=== PATIENT | female | born 1975 | race Two or more races ===

== ENCOUNTER 2016-08-02 14:53 | Emergency (ER) | payer MEDICAID ==
[~2016-08-02] VITALS: Wt 62.0 kg
--- NOTE | 2016-08-02 16:24 | RADRPT ---
PROCEDURE: CT Brain without contrast. CLINICAL INDICATION: Right facial numbness and drooping. TECHNIQUE: CT scan of the brain was performed on a multidetector high-resolution CT scan. Axial im aging was obtained of the brain without contrast administration. Coronal and sagittal reformatted i mages were obtained from the axial source images. Standard CT scan of the head without contrast prot ocols were performed. The total exam CTDI equals 45.01 mGy and the total exam DLP equals 630.2 mGy-cm. One or more of the following dose reduction techniques were used: - Automated exposure control. - Adjustment of the mA and/or kV according to patient size. Use of iterative reconstruction technique. COMPARISON: None FINDINGS: The ventricular system and peripheral CSF spaces are unremarkable. There are punctate calcification s involving the right frontal lobe consistent with previous inflammatory disease such as cysticercos is. Negative for intracranial masses hemorrhages or midline shift. The bones of the calvarium are i ntact. Paranasal sinuses and mastoids are unremarkable. IMPRESSION: 1. 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 2. Negative for intracranial masses hemorrhages or midline shift. RPTAT:AAJJ Physician Ross Date Time Electronically viewed and signed by Physician Ross on 08/02/2016 16:24 BM/
[2016-08-02] MEDS ORDERED: PRED20TA PO (16:35)
[2016-08-02] MEDS ORDERED: [UNRECOGNIZED DRUG - CODE] MC (16:36)
[2016-08-02] MEDS ORDERED: MINE3.5O30 RIGHT EYE (16:36)
[2016-08-02] MEDS ORDERED: predniSONE 20 MG TAB PO ONE (17:00)
--- NOTE | 2016-08-02 17:04 | ERD ---
ER Documentation Chief Complaint Date/Time DATE: 08/02/16 TIME: 16:56 Chief Complaint BARRERA, R. SIDED FACIAL, R. EYE TEARING SINCE SATURDAY HPI Patient is a 41-year-old female who presents to the ED with right sided facial pain, right eye pain, headache, tearing since 5 days ago. She states that she has a history of headaches, this is similar to headaches she has had in the past. Denies difficulty speaking, walking or weakness. Denies dizziness. Denies blurry vision . Denies hearing problems. Denies fever or chills. Denies cough, chest pain, shortness of breath, difficulty breathing. ROS All systems reviewed and are negative except as per history of present illness. Medications Home Meds Active Scripts Eye Patch (Eye Patch) 1 Each Each, 1 EACH , #1 Prov:ABIMBOLA HERRERA PA-C 08/02/16 Mineral Oil/Petrolatum,White (ARTIFICIAL TEARS EYE OINT) 3.5 Gm Oint...g., 1 APPLIC RIGHT EYE NEEDED Y for DRY EYES, #1 EA Prov:ABIMBOLA HERRERA PA-C 08/02/16 Prednisone* (Prednisone*) 20 Mg Tab, 60 MG PO DAILY for 4 Days, TAB Prov:ABIMBOLA HERRERA PA-C 08/02/16 Allergies Allergies: Coded Allergies: No Known Drug Allergy (Verified Allergy, Unknown, 01/11/07) PMhx/Soc History of Surgery: Yes (APPENDECTOMY) Anesthesia Reaction: No Hx Neurological Disorder: No Hx Respiratory Disorders: No Hx Cardiac Disorders: No Hx Psychiatric Problems: No Hx Miscellaneous Medical Probl: No Hx Alcohol Use: No Hx Substance Use: No Hx Tobacco Use: No Smoking Status: Never smoker FmHx Family History: No coronary disease, No diabetes, No other Physical Exam Vitals Vital Signs Date Time Temp Pulse Resp B/P Pulse Ox O2 Delivery O2 Flow Rate FiO2 08/02/16 14:55 97.7 78 20 120/81 98 Physical Exam GENERAL: Well-developed, well-nourished female. Appears in no acute distress. HEAD: Normocephalic, atraumatic. able to raise eyebrows on both sides, L>R, forehead wrinkle diminished on R>L. EYES: Pupils are equally reactive bilaterally. EOMs grossly intact. No conjunctival erythema. right eye not fully close ENT: Moist mucous membranes. No uvula deviation. No kissing tonsils. No exudates. HEART: Regular rate and rhythm. No murmurs, rubs or gallops. Extremities: Equal pulses bilaterally. No peripheral clubbing, cyanosis or edema. No unilateral leg swelling. NEUROLOGIC: Alert and oriented. Moving all four extremities. 5/5 strength in all extremities. Normal speech. Steady gait..taste decreased R>L. sensation decreased on right side of face > L. SKIN: Normal color. Warm and dry. No rashes or lesions. Capillary refill < 2 seconds Results 24 hrs Current Medications Medications (Trade) Dose Ordered Sig/Paulette Route PRN Reason Start Time Stop Time Status Last Admin Dose Admin Prednisone (Prednisone) 60 mg ONCE ONCE PO 08/02/16 17:00 08/02/16 17:00 DC 08/02/16 16:49 Procedures/MDM ER COURSE: I kept the patient and/or family informed of laboratory and diagnostic imaging results throughout the emergency room course. IMAGING: [place] [address] Radiology Main Line: [phone] DIAGNOSTIC IMAGING REPORT Patient: SONAM DOMINGUEZ : 1975 Age: 41 Sex: F [id number] DOS: 08/02/16 1539 Ordering MD: ABIMBOLA HERRERA PA-C Location: E/R Room/Bed: PROCEDURE: CT Brain without contrast. CLINICAL INDICATION: Right facial numbness and drooping. TECHNIQUE: CT scan of the brain was performed on a multidetector high- resolution CT scan. Axial imaging was obtained of the brain without contrast administration. Coronal and sagittal reformatted images were obtained from the axial source images. Standard CT scan of the head without contrast protocols were performed. The total exam CTDI equals 45.01 mGy and the total exam DLP equals 630.2 mGy- cm. One or more of the following dose reduction techniques were used: - Automated exposure control. - Adjustment of the mA and/or kV according to patient size. Use of iterative reconstruction technique. COMPARISON: None FINDINGS: The ventricular system and peripheral CSF spaces are unremarkable. There are punctate calcifications involving the right frontal lobe consistent with previous inflammatory disease such as cysticercosis. Negative for intracranial masses hemorrhages or midline shift. The bones of the calvarium are intact. Paranasal sinuses and mastoids are unremarkable. IMPRESSION: 1. 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 2. Negative for intracranial masses hemorrhages or midline shift. RPTAT:AAJJ Physician Ross Date Time Electronically viewed and signed by Mikaela Holman Physician on 08/02/2016 16:24 BM/ CC: ABIMBOLA HERRERA PA-C MEDICAL DECISION MAKING: This is a 41-year-old female who presents with right eye tearing, pain, headache and right-sided facial pain. Vital signs were reviewed. Patient is afebrile. Patient is not hypoxic. Patient is not toxic or ill-appearing. I have consulted with Dr. Gama who has examined patient at bedside. Patient has what is likely Johnson's palsy. A CT scan was ordered to rule out any neurologic emergencies. Low suspicion for intracranial hemorrhage, meningitis, intracranial mass, concussion, temporal arteritis, stroke, elevated intracranial pressure, seizure. Patient has decreased taste on right side, decreased eye closure, decreased forehead wrinkle. Patient does not show signs of FAST. DISCHARGE: At this time, patient is stable for discharge and outpatient management with no new complaints during the ER course. Patient was sent home with eye patch, artificial tears and prednisone. Patient will be discharged home with instructions to recheck for new or worsening symptoms such as fever, nausea, weakness, LOC and to follow up with primary care in the next 1-2 days. Patient was advised to return to the ER for any new or worsening symptoms. Plan was discussed and patient and/or family understands and agrees. Home instructions were given. Departure Diagnosis: Primary Impression: Johnson's palsy Condition: Stable Patient Instructions: Johnson's Palsy Additional Instructions: Llame al doctor KIRAANA y cecelia yo NORMAN PARA DENTRO DE 1-2 HENSON.Dgale a la secretaria que nosotros le instruimos hacer esta norman.Avise o llame si hess condicin se empeora antes de la norman. Regresa aqui si peor o no mejor. ABIMBOLA HERRERA PA-C Aug 02, 2016 17:04
== END 2016-08-02 16:57 | disposition home or self-care (01) ==
LOC: E/R 14:53
DX: G51.0 Bell's palsy (principal)
CPT/HCPCS: 70450; J7512; Z7502

== ENCOUNTER 2018-11-07 08:59 | Emergency (ER) | payer MEDICAID ==
[~2018-11-07] VITALS: Ht 152.4 cm; Wt 60.0 kg
[~2018-11-07 08:59] MED LIST: MINE3.5O30 RIGHT EYE; PRED20TA PO; [UNRECOGNIZED DRUG - CODE] MC
[2018-11-07 09:01] VITALS: BP 119/55; PULSE 55; RESP 18; Ht 152.4 cm; Wt 60.0 kg
[2018-11-07] MEDS ORDERED: BENZ1LOZ52 MM (09:57)
[2018-11-07] MEDS ORDERED: BENZ-6 PO (09:57)
[2018-11-07] MEDS ORDERED: ALBU18HF INHALATION (09:57)
--- NOTE | 2018-11-07 10:12 | ERD ---
ER Documentation Chief Complaint Chief Complaint pt is bib self with c/o cough and sore throat since Saturday HPI 43-year-old female patient with a past medical history of hypothyroidism pres ents the ED complaining of cough, sore throat that started a few days ago. States that her son is also sick with similar symptoms. Reports that she has not taking any medications for her cough. Reports that she has a dry cough. States that she is able to swallow liquids and solids without any difficulty. Denies any fever, chills, nausea, vomiting, dysphagia, abdominal pain, chest pain, shortness of breath. ROS All systems reviewed and are negative except as per history of present illness. Medications Home Meds Active Scripts Albuterol Sulfate* (Ventolin HFA*) 18 Gm Hfa.aer.ad, 2 PUFF INHALATION Q4H, #1 INHALER Prov:VIRGINIA REN PA-C 11/07/18 Benzocaine/Menthol* (Cepacol* Sore Throat Lozenges) 1 Each Lozenge, 1 EACH MM q2h PRN for SORE THROAT, #20 LOZENGE Prov:VIRGINIA REN PA-C 11/07/18 Benzonatate* (Tessalon Perle*) 100 Mg Capsule, 100 MG PO Q8H PRN for COUGH, #20 CAP Prov:VIRGINIA REN PA-C 11/07/18 Eye Patch (Eye Patch) 1 Each Each, 1 EACH MC, #1 Prov:ABIMBOLA HERRERA PA-C 08/02/16 Mineral Oil/Petrolatum,White (ARTIFICIAL TEARS EYE OINT) 3.5 Gm Oint...g., 1 APPLIC RIGHT EYE NEEDED PRN for DRY EYES, #1 EA Prov:ABIMBOLA HERRERA PA-C 08/02/16 Prednisone* (Prednisone*) 20 Mg Tab, 60 MG PO DAILY for 4 Days, TAB Prov:ABIMBOLA HERRERA PA-C 08/02/16 Allergies Allergies: Coded Allergies: No Known Drug Allergy (Verified Allergy, Unknown, 01/11/07) PMhx/Soc History of Surgery: Yes (APPENDECTOMY) Anesthesia Reaction: No Hx Neurological Disorder: No Hx Respiratory Disorders: No Hx Cardiac Disorders: No Hx Psychiatric Problems: No Hx Miscellaneous Medical Probl: No Hx Alcohol Use: No Hx Substance Use: No Hx Tobacco Use: No Smoking Status: Never smoker FmHx Family History: No diabetes, No coronary disease Physical Exam Vitals Vital Signs Date Temp Pulse Resp B/P (MAP) Pulse Ox O2 O2 Flow FiO2 Time Delivery Rate 11/07/18 98.2 55 18 119/55 100 09:01 (76) Physical Exam Const: Rih-pmd-pdxgkpyxs, well-nourished. In no acute distress. Head: Atraumatic, normocephalic Eyes: Normal Conjunctiva without injection. No purulent discharge. PERRL. EOMI ENT: Normal external ear. Ear canal without erythema. Tympanic membrane pearly guallpa without effusion or bulging. Nasal canal clear with normal turbinates. Moist oropharynx without tonsillar exudates. Non-erythematous pharynx. Uvula midline. No drooling. No trismus. Neck: Full range of motion. No meningismus. No cervical lymphadenopathy. Resp: Clear to auscultation bilaterally. No wheezing, rhonchi, rales, or crackles. No accessory muscle use. No retractions. Cardio: Regular rate and rhythm. No murmurs, rubs or gallops. Abd: Soft, non tender, non distended. Normal bowel sounds. No palpable masses. No rebound tenderness. No guarding. Skin: No petechiae or rashes Back: No midline tenderness. No CVA tenderness. Ext: No cyanosis, or edema. Neur: Awake and alert. Psych: Normal Mood and Affect Procedures/MDM 43-year-old female patient with a past medical history of hypothyroidism presents the ED complaining of cough, sore throat that started a few days ago. Patient is afebrile and nontoxic-appearing. This patient presents to the ED with symptoms consistent with a viral acute upper respiratory infection. Patient sons have similar symptoms. Patient is afebrile and has normal vital signs. Patient's physical exam include lungs which were clear to auscultation and a normal pulse oximetry. There is a low suspicion for a croup, pneumonia, pneumothorax, strep pharyngitis, otitis media, otitis externa, sinusitis, peritonsillar abscess, foreign body aspiration, mastoiditis, retropharyngeal abscess, epiglottitis, meningitis, sepsis or other emergent conditions. Diagnosis: Cough, sore throat Discharge medications: Ventolin, Cepacol, Tessalon Perles Follow up with primary care physician in 1-2 days. Instructed patient to return to the ED sooner for any worsening symptoms. Patient's questions were answered. Patient is hemodynamically stable. Patient understood and agreed with discharge plan. Patient discharged stable. Disclaimer: Inadvertent spelling and grammatical errors are likely due to EHR/dictation software use and do not reflect on the overall quality of patient care. Also, please note that the electronic time recorded on this note does not necessarily reflect the actual time of the patient encounter. Departure Diagnosis: Primary Impression: Cough Additional Impression: Sore throat Condition: Stable Patient Instructions: Uri, Viral, No Abx (Adult) [facility]errals[facility] Usted se lara hecho un examen mdico de control que le indica que no est en yo condicin que requiera tratamiento urgente en el Departamento de Emergencia. Un estudio ms profundo y el tratamiento de hess condicin pueden esperar sin ningn riesgo hasta que usted sea atendida/o en el consultorio de hess mdico o yo clnica. Es responsabilidad suya arreglar yo norman para el seguimiento del jazmine. MANEJO DE CONDICIONES NO URGENTES EN EL FUTURO 1) Si usted tiene un mdico de atencin primaria: Usted debera llamar a hess mdico de atencin primaria antes de venir al departamento de emergencia. Despus de las horas de consultorio, hess doctor o hess asociado/a est disponible por telfono. El mdico o enfermero de elieser en el servicio telefnico puede asesorarle por karan medio para atender el problema, o jazmine contrario se puede programar yo norman. 2) Si usted no tiene un mdico de atencin primaria: Llame al mdico o clnica de referencia que aparece abajo bon las horas de consultorio para hacer yo norman para que le vean. CLINICAS: [facility] [phone] [facility] [phone] [facility] [phone] [place] [id number] [phone] [place] [address] [phone] [facility]. [phone] [address] [facility]. [facility] () Usted se lara hecho un examen mdico de control que le indica que no est en yo condicin que requiera tratamiento urgente en el Departamento de Emergencia. Un estudio ms profundo y el tratamiento de hess condicin pueden esperar sin ningn riesgo hasta que usted sea atendida/o en el consultorio de hess mdico o yo clnica. Es responsabilidad suya arreglar yo norman para el seguimiento del jazmine. MANEJO DE CONDICIONES NO URGENTES EN EL FUTURO 1) Si usted tiene un mdico de atencin primaria: Usted debera llamar a hess mdico de atencin primaria antes de venir al departamento de emergencia. Despus de las horas de consultorio, hess doctor o hess asociado/a est disponible por telfono. El mdico o enfermero de elieser en el servicio telefnico puede asesorarle por karan medio para atender el problema, o jazmine contrario se puede programar yo norman. 2) Si usted no tiene un mdico de atencin primaria: Llame al mdico o condado institucions de referencia que aparece abajo bon las horas de consultorio para hacer yo norman para que le vean. SI USTED NO PUEDE PAGAR PARA ILIA UN MEDICO puede ir a: [facility] [address] [place] [address] [facility] [address] [place] [address] [facility] [address] [place] [address] [facility] [address] [place], [place] [id number] Additional Instructions: Llame al doctor MAANA y cecelia yo NORMAN PARA DENTRO DE 2-3 HENSON.Dgale a la secretaria que nosotros le instruimos hacer esta norman.Avise o llame si hess condicin se empeora antes de la norman. Regresa aqui si peor o no mejor. VIRGINIA REN PA-C November 07, 2018 10:10
== END 2018-11-07 10:06 | disposition home or self-care (01) ==
LOC: FTE 08:59
DX: J02.9 Acute pharyngitis, unspecified (principal); E03.9 Hypothyroidism, unspecified
CPT/HCPCS: 99283